=== PATIENT | male | born 1950 | race Caucasian/White ===

== ENCOUNTER 2018-11-14 18:44 | Observation (INO) ==
[2018-11-14] MEDS ORDERED: NITROGLYCERIN SL 0.4 MG/TAB TAB SL STA (19:13)
[2018-11-14] MEDS ORDERED: SODIUM CHLORIDE 0.9% 1000ML 1,000 ML IV SCH (19:15)
--- NOTE | 2018-11-14 19:28 | XRay Report ---
XR chest 1V portable CLINICAL HISTORY: 68 years-old Male presenting with Chest Pain. TECHNIQUE: Portable upright AP view of the chest was obtained. COMPARISON: None. FINDINGS: Median sternotomy wires. Epicardial pacing wire also noted. Cardiac silhouette top normal in size. Mi ld pulmonary vascular prominence. Mildly low lung volumes with hypoventilatory changes. No focal opac ity. No large effusion or pneumothorax. Osseous structures normal. Upper abdomen normal. IMPRESSION: 1. Mildly low lung volumes with hypoventilatory changes. 2. Possible mild volume overload. No hardeep pulmonary edema. Electronically signed by: Porfirio Walker M.D. 11/14/2018 7:26 PM
[2018-11-14 19:44] LABS: Basophils # (auto) 0.02 K/uL (0-0.2); Basophils % (auto) 0.3 %; Eosinophils # (auto) 0.11 K/uL (0-0.5); Eosinophils % (auto) 1.5 %; Hematocrit (blood only) 34.2 % (42-52); Hemoglobin 11.9 g/dL (14.0-18.0); Immature Granulocytes # (auto) 0.01 K/uL (0.00-0.02); Immature Granulocytes % (auto) 0.1 %; Lymphocytes # (auto) 2.87 K/uL (1.2-3.4); Mean Corpuscular Hemoglobin 30.4 pg (25-34); Mean Corpuscular Hgb Conc 34.8 g/dL (32-36); Mean Corpuscular Volume 87.5 fL (80-100); Mean Platelet Volume 9.1 fL (7.4-10.4); Monocytes # (auto) 0.63 K/uL (0.11-0.59); Monocytes % (auto) 8.3 %; Neutrophils # (auto) 3.91 K/uL (1.4-6.5); Neutrophils % (auto) 51.8 %; Platelet Count 231 K/uL (130-400); RDW Standard Deviation 41.3 fL (36.4-46.3); Red Blood Count 3.91 M/uL (4.7-6.1); White Blood Count 7.55 K/uL (4.8-10.8)
[2018-11-14 19:59] LABS: D Dimer 270 ug/L FEU (0-500)
[2018-11-14 20:07] LABS: Alanine Aminotransferase 29 U/L (12-78); Albumin Level 3.4 gm/dl (3.4-5.0); Aspartate Aminotransferase 20 U/L (15-37); BUN Creatinine Ratio 15.9 (10-20); Blood Urea Nitrogen 25 mg/dl (7-18); Calcium 8.7 mg/dl (8.5-10.1); Carbon Dioxide 23 mmol/L (21-32); Chloride 108 mmol/L (98-107); Creatinine Clr Calc Pharmacy 52.9 ml/min; Est GFR (African American) 50.6; Est GFR (Non-African American) 43.7; Glucose 188 mg/dl (70-99); Lipase 135 U/L (73-393); Potassium 4.3 mmol/L (3.5-5.1); Sodium 140 mmol/L (136-145)
[2018-11-14 20:12] LABS: Albumin Globulin Ratio 0.9 (0.9-2); Alkaline Phosphatase 87 U/L (45-117); Bilirubin,Total 0.3 mg/dl (0.2-1); Total Protein 7.4 gm/dl (6.4-8.2); Troponin I < 0.015 ng/ml (0-0.045)
--- NOTE | 2018-11-14 21:31 | History & Physical Report ---
Date of Service November 14, 2018 Assessment & Plan (1) Chest pain: This is a 68-year-old male with history of CAD, CABG in 2015, status post gastric bypass 2 years ago, type 2 diabetes, hypertension, former smoker 90 pack year history quit 4 years ago, MCKENZIE compliant with CPAP, who presents with midsternal chest pressure radiating to the left arm. States it feels like something is fluttering underneath his sternum. Endorses sharp pain in his left upper arm. 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 Associated with dizziness and lightheadedness. He thought the pain would go away on its own and did not alert family until around 5 PM. He was brought in by EMS and given nitroglycerin with good effect. Denies shortness of breath, leg swelling, abdominal pain, diarrhea constipation, headache or blurred vision. ED course:Nitroglycerin x2, EKG with no dynamic changes, chest x-ray negative. Labs remarkable for anemia hemoglobin 11.9, elevated creatinine 1.58, initial troponin negative. Chest pain -EKG with no dynamic changes, However with risk factors positive for history of CABG, obesity, hypertension, hypercholesterolemia, diabetes. -MACE Score is moderate, 5 points, risk 12 to 16.6% Plan: -Admit to telemetry -Trend troponins, initial was negative -Echo in a.m. -A1c, BMP,TSH and CBC in a.m. Elevated creatinine, Mild -1.58 -Unsure of patient's baseline, will trend FEN/GI: HH/diabetic diet, NPO after midnite DVT ppx: heparin q8h CODE STATUS: FULL as d/w pt, however he is adamant he "would not want to be a vegetable". DISPO: tele (2) Coronary artery disease with hx of myocardial infarct w/o hx of CABG: (3) Type 2 diabetes mellitus: Type 2 diabetes -Appears to be well controlled, patient states A1c 1 month ago was 7.2 -On Glimepiride at home, will hold p.o. meds while inpatient -A1c in a.m. -Insulin sliding scale while here (4) Hypertension: -Elevated in ED, likely situational versus cardiac related -Continue home amlodipine, carvedilol, losartan (5) H/O gastric bypass: Avoid NSAIDs when possible (6) H/O hernia repair: (7) GERD (gastroesophageal reflux disease): Continue home PPI (8) MCKENZIE on CPAP: CPAP ordered for here (9) Former smoker: (10) Obesity: (11) Anxiety: Continue home paroxetine History of Present Illness Chief Complaint: Substernal pressure, radiating to left arm, history of CABG in 2014 Primary Care Provider: Dr. Robe [facility], [facility] Address: [address] [place] [address] This is a 68-year-old male with history of CAD, CABG in 2015, status post gastric bypass 2 years ago, type 2 diabetes, hypertension, former smoker 90 pack year history quit 4 years ago, MCKENZIE compliant with CPAP, who presents with midsternal chest pressure radiating to the left arm. States it feels like something is fluttering underneath his sternum. Endorses sharp pain in his left upper arm. 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 Associated with dizziness and lightheadedness. He thought the pain would go away on its own and did not alert family until around 5 PM. He was brought in by EMS and given nitroglycerin with good effect. Denies shortness of breath, leg swelling, abdominal pain, diarrhea constipation, headache or blurred vision. ED course:Nitroglycerin x2, EKG with no dynamic changes, chest x-ray negative. Labs remarkable for anemia hemoglobin 11.9, elevated creatinine 1.58, initial troponin negative. Past medical history: CAD, CABG in 2014, status post gastric bypass 2 years ago, type 2 diabetes, hypertension, former smoker 90 pack year history quit 4 years ago, MCKENZIE compliant with CPAP, Anxiety Surgical history: Positive for gastric bypass 2 years ago, CABG in 2015, hernia repair x2 SH: He is from out of town [facility], here with family. He is retired but drives a bus for living. Lives with his . Former smoker 30 years of 2+ packs a day, No alcohol or drugs. Allergies Allergy/AdvReac Type Severity Reaction Status Date / Time clindamycin Allergy Intermediate Hives Verified 11/14/18 21:22 Home Medications Home Medications Medication Instructions Recorded Confirmed Type amlodipine 5 mg PO QAM 11/14/18 11/14/18 History ascorbic acid (vitamin C) [Vitamin 500 mg PO QAM 11/14/18 11/14/18 History C] aspirin 81 mg PO QAM 11/14/18 11/14/18 History atorvastatin 20 mg PO QAM 11/14/18 11/14/18 History carvedilol 25 mg PO QAM 11/14/18 11/14/18 History cholecalciferol (vitamin D3) 400 unit PO QAM 11/14/18 11/14/18 History [Vitamin D3] cyanocobalamin (vitamin B-12) 100 mcg PO QAM 11/14/18 11/14/18 History [Vitamin B-12] ferrous sulfate 325 mg PO QAM 11/14/18 11/14/18 History furosemide 40 mg PO QAM 11/14/18 11/14/18 History glimepiride 4 mg PO BID 11/14/18 11/14/18 History losartan 100 mg PO QAM 11/14/18 11/14/18 History multivitamin 1 tab PO QAM 11/14/18 11/14/18 History omeprazole 20 mg PO QAM 11/14/18 11/14/18 History paroxetine HCl 20 mg PO QAM 11/14/18 11/14/18 History vitamin E 400 unit PO QAM 11/14/18 11/14/18 History Past Med/Surg History Medical History Anxiety (Chronic) Obesity (Chronic) Former smoker (Chronic) MCKENZIE on CPAP (Chronic) GERD (gastroesophageal reflux disease) (Chronic) Hypertension (Chronic) Type 2 diabetes mellitus (Chronic) Coronary artery disease with hx of myocardial infarct w/o hx of CABG (Chronic) Surgical History H/O hernia repair (Chronic) H/O gastric bypass (Chronic) S/P triple vessel bypass (Acute) Social History Preferred Language: Spanish Communication Ability: Effective Environmental Web Crawler Required: No Beliefs That Will Affect Care: None Current Living Situation: Spouse Other Information That Helps Us Care for You: No Feels Safe at Home: Yes Safety Concerns: Feels Safe At This Time Smoking Status: Former smoker Do You Dip or Chew Tobacco: No ; Second Hand Exposure: No ; Tobacco Cessation Education Requested by Patient: No Hx Alcohol Use: Yes Alcohol type: wine Hx Substance Use: No Review of Systems Review of Systems: All systems reviewed & are unremarkable except as noted in HPI & below Physical Exam Physical Exam: Vitals noted and within normal limits with the exception of Elevated blood pressure 194/78. GENERAL: Awake, alert to person, place, and time, nontoxic-appearing, in no distress. HENT: Normocephalic, atraumatic. EYES: Normal conjunctiva. Sclera non-icteric. EOMI. NECK: Supple. Full range of motion. No JVD. RESPIRATORY: Clear to auscultation. Normal work of breathing. CARDIAC: Regular rate, normal rhythm. Extremities warm and well perfused, 2+ radial pulses bilaterally; 2+ posterior tibialis pulses bilaterally. CHEST: Mild tenderness to palpation along left pectoral muscle. No tenderness to palpation midsternal chest. ABDOMEN: Soft, non-distended. No tenderness to palpation in all four quadrants. No rebound or guarding. No masses. Bowel sounds are normal. LOWER EXTREMITIES: Inspection of calves reveal equal size bilaterally. They are non-tender. No edema. No discoloration. NEURO: No gross focal motor deficits noted. Sensation in tact. CN II-XII grossly in tact. . SKIN: Rash not present. No jaundice noted. Significant lesions not present. PSYCH: Appropriate mood and affect. Cooperative. Exam as done by Sagrario Mock MD, Business Planning Director. Results & Data Vital Signs (Past 12 Hours) Vital Signs Temp Pulse Resp BP Pulse Ox 11/14/18 20:30 59 L 9 L 150/63 H 97 11/14/18 20:15 61 12 156/61 H 97 11/14/18 20:00 62 13 144/79 H 93 11/14/18 19:46 63 14 155/115 H 92 11/14/18 19:30 62 17 151/66 H 94 11/14/18 19:16 63 14 159/64 H 98 11/14/18 19:00 61 11 L 154/69 H 97 11/14/18 18:56 59 L 23 98 11/14/18 18:53 59 L 18 154/75 H 98 11/14/18 18:30 36.8 C 67 16 154/75 H 98 Laboratory Results 11/14/18 11/14/18 11/14/18 Range/Units 19:24 19:24 19:24 WBC 7.55 (4.8-10.8) K/uL RBC 3.91 L (4.7-6.1) M/uL Hgb 11.9 L (14.0-18.0) g/dL Hct 34.2 L (42-52) % MCV 87.5 (80-100) fL MCH 30.4 (25-34) pg MCHC 34.8 (32-36) g/dL RDW Std Deviation 41.3 (36.4-46.3) fL RDW Coeff of Nelda 13.0 (11.5-14.5) % Plt Count 231 (130-400) K/uL MPV 9.1 (7.4-10.4) fL Immature Gran % (Auto) 0.1 % Neut % (Auto) 51.8 % Lymph % (Auto) 38.0 % Leslie % (Auto) 8.3 % Eos % (Auto) 1.5 % Baso % (Auto) 0.3 % Immature Gran # (Auto) 0.01 (0.00-0.02) K/uL Neut # (Auto) 3.91 (1.4-6.5) K/uL Lymph # (Auto) 2.87 (1.2-3.4) K/uL Leslie # (Auto) 0.63 H (0.11-0.59) K/uL Eos # (Auto) 0.11 (0-0.5) K/uL Baso # (Auto) 0.02 (0-0.2) K/uL D-Dimer 270 (0-500) ug/L FEU Sodium 140 (136-145) mmol/L Potassium 4.3 (3.5-5.1) mmol/L Chloride 108 H (98-107) mmol/L Carbon Dioxide 23 (21-32) mmol/L Anion Gap 9.0 (3-11) BUN 25 H (7-18) mg/dl Creatinine 1.58 H (0.6-1.4) mg/dl Est Cr Clr Drug Dosing 52.9 ml/min Est GFR ( Amer) 50.6 Est GFR (Non-Af Amer) 43.7 BUN/Creatinine Ratio 15.9 (10-20) Glucose 188 H (70-99) mg/dl Calcium 8.7 (8.5-10.1) mg/dl Total Bilirubin 0.3 (0.2-1) mg/dl AST 20 (15-37) U/L ALT 29 (12-78) U/L Alkaline Phosphatase 87 (45-117) U/L Troponin I < 0.015 (0-0.045) ng/ml Total Protein 7.4 (6.4-8.2) gm/dl Albumin 3.4 (3.4-5.0) gm/dl Globulin 4.0 (2.5-4.0) gm/dl Albumin/Globulin Ratio 0.9 (0.9-2) Lipase 135 (73-393) U/L Supervising Physician Co-Signing Physician Notes Patient was seen and examined by me personally. I reviewed the chart, the orders and discussed the case in detail with Dr. Sagrario Mock MD . I read this H&P and agree with its contents to entirety. PG Care Time/CCT Total # of Minutes Spent Total Time Spent with Patient: Total time spent is greater than 50% in coordination of care (as documented) at patient's floor/unit and/or counseling patient: Resident Activity Tracking Resident Involvement: Resident Care Provided Care Provided: Adult Hospital Medicine
[2018-11-14] MEDS ORDERED: MAGNESIUM HYDROXIDE SUSP 30 ML UDC PO PRN (22:14)
[2018-11-14] MEDS ORDERED: DEXTROSE 50% 50 ML SYRINGE IV PRN (22:14)
[2018-11-14] MEDS ORDERED: POLYETHYLENE (MIRALAX) 17 GM PACK PO PRN (22:14)
[2018-11-14] MEDS ORDERED: ALUMINUM/MAGNESIUM SUSP 30 ML UDC PO PRN (22:14)
[2018-11-14] MEDS ORDERED: ONDANSETRON INJ 2 MG/ML 2 ML VIAL IV PRN (22:14)
[2018-11-14] MEDS ORDERED: GLUCOSE 10 TABS/TUBE PO PRN (22:14)
[2018-11-14] MEDS ORDERED: CARBOHYDRATES FOR HYPOGLYCEMIA PO PRN (22:14)
[2018-11-14] MEDS ORDERED: GLUCOSE 40% GEL 15 GM TUBE PO PRN (22:14)
[2018-11-14] MEDS ORDERED: GLUCAGON FOR INJ 1 MG VIAL SQ PRN (22:14)
[2018-11-14] MEDS ORDERED: ACETAMINOPHEN 325 MG TAB PO PRN (22:14)
[2018-11-14] MEDS ORDERED: NITROGLYCERIN SL 0.4 MG/TAB TAB SL PRN (22:14)
--- NOTE | 2018-11-14 23:45 | Emergency Department Note ---
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 He notes that it radiates to his left shoulder. He notes that the pain is intermittent and has worsened throughout the day. The patient states that he has mild left sided neck pain. He notes that he has shortness of breath. He states that his pain worsens with deep breaths. He mentions that he has a history of diabetes and hypertension. He denies any cough or runny nose. He denies any history of blood clots. Patient admits to a history of a CABG 4 years ago. Home Medications Home Medications Medication Instructions Recorded Confirmed Type amlodipine 5 mg PO QAM 11/14/18 11/14/18 History ascorbic acid (vitamin C) [Vitamin 500 mg PO QAM 11/14/18 11/14/18 History C] aspirin 81 mg PO QAM 11/14/18 11/14/18 History atorvastatin 20 mg PO QAM 11/14/18 11/14/18 History carvedilol 25 mg PO QAM 11/14/18 11/14/18 History cholecalciferol (vitamin D3) 400 unit PO QAM 11/14/18 11/14/18 History [Vitamin D3] cyanocobalamin (vitamin B-12) 100 mcg PO QAM 11/14/18 11/14/18 History [Vitamin B-12] ferrous sulfate 325 mg PO QAM 11/14/18 11/14/18 History furosemide 40 mg PO QAM 11/14/18 11/14/18 History glimepiride 4 mg PO BID 11/14/18 11/14/18 History losartan 100 mg PO QAM 11/14/18 11/14/18 History multivitamin 1 tab PO QAM 11/14/18 11/14/18 History omeprazole 20 mg PO QAM 11/14/18 11/14/18 History paroxetine HCl 20 mg PO QAM 11/14/18 11/14/18 History vitamin E 400 unit PO QAM 11/14/18 11/14/18 History Allergies Allergy/AdvReac Type Severity Reaction Status Date / Time clindamycin Allergy Intermediate Hives Verified 11/14/18 21:22 Past Med/Surg History Medical History Anxiety (Chronic) Obesity (Chronic) Former smoker (Chronic) MCKENZIE on CPAP (Chronic) GERD (gastroesophageal reflux disease) (Chronic) Hypertension (Chronic) Type 2 diabetes mellitus (Chronic) Coronary artery disease with hx of myocardial infarct w/o hx of CABG (Chronic) Surgical History H/O hernia repair (Chronic) H/O gastric bypass (Chronic) S/P triple vessel bypass (Acute) Social History Preferred Language: Belizean Communication Ability: Effective Blood Bank Laboratory Technician Required: No Beliefs That Will Affect Care: None Current Living Situation: Spouse Other Information That Helps Us Care for You: No Feels Safe at Home: Yes Safety Concerns: Feels Safe At This Time Smoking Status: Former smoker Do You Dip or Chew Tobacco: No ; Second Hand Exposure: No ; Tobacco Cessation Education Requested by Patient: No Hx Alcohol Use: Yes Alcohol type: wine Hx Substance Use: No Review of Systems See HPI for pertinent positives & negatives. and A total of 10 systems reviewed and were otherwise negative Physical Exam Vital Signs Vital Signs - 24 hr 11/14/18 18:30 11/14/18 18:53 11/14/18 18:56 Temperature 36.8 C Temperature Source Oral Sepsis Recent Fever Within 48 Hours No Sepsis New/Unexplained Change in Mental Status No Sepsis Action Taken by Nursing No Action Required Pulse Rate 67 59 L 59 L Pulse Rate from SpO2 Sensor 59 L 59 L Pulse Rhythm Regular Pulse Strength Normal Respiratory Rate 16 18 23 Respiratory Effort / Characteristics Non-Labored Spontaneous Respiratory Depth Normal Respiratory Pattern Regular Blood Pressure 154/75 H 154/75 H Blood Pressure Mean 101 101 Blood Pressure Position Lying Pulse Oximetry 98 98 98 Oxygen Delivery Method Room Air 11/14/18 18:59 11/14/18 19:00 11/14/18 19:12 Temperature Temperature Source Sepsis Recent Fever Within 48 Hours Sepsis New/Unexplained Change in Mental Status Sepsis Action Taken by Nursing Pulse Rate 61 Pulse Rate from SpO2 Sensor 62 Pulse Rhythm Pulse Strength Respiratory Rate 11 L Respiratory Effort / Characteristics Respiratory Depth Respiratory Pattern Blood Pressure 154/69 H Blood Pressure Mean 97 Blood Pressure Position Pulse Oximetry 97 Oxygen Delivery Method Room Air Room Air 11/14/18 19:16 11/14/18 19:30 11/14/18 19:46 Temperature Temperature Source Sepsis Recent Fever Within 48 Hours Sepsis New/Unexplained Change in Mental Status Sepsis Action Taken by Nursing Pulse Rate 63 62 63 Pulse Rate from SpO2 Sensor 61 62 63 Pulse Rhythm Pulse Strength Respiratory Rate 14 17 14 Respiratory Effort / Characteristics Respiratory Depth Respiratory Pattern Blood Pressure 159/64 H 151/66 H 155/115 H Blood Pressure Mean 95 94 128 Blood Pressure Position Pulse Oximetry 98 94 92 Oxygen Delivery Method 11/14/18 20:00 11/14/18 20:15 11/14/18 20:30 Temperature Temperature Source Sepsis Recent Fever Within 48 Hours Sepsis New/Unexplained Change in Mental Status Sepsis Action Taken by Nursing Pulse Rate 62 61 59 L Pulse Rate from SpO2 Sensor 61 62 59 L Pulse Rhythm Pulse Strength Respiratory Rate 13 12 9 L Respiratory Effort / Characteristics Respiratory Depth Respiratory Pattern Blood Pressure 144/79 H 156/61 H 150/63 H Blood Pressure Mean 100 92 92 Blood Pressure Position Pulse Oximetry 93 97 97 Oxygen Delivery Method 11/14/18 20:45 11/14/18 21:00 11/14/18 21:15 Temperature Temperature Source Sepsis Recent Fever Within 48 Hours Sepsis New/Unexplained Change in Mental Status Sepsis Action Taken by Nursing Pulse Rate 62 60 63 Pulse Rate from SpO2 Sensor 61 60 65 Pulse Rhythm Pulse Strength Respiratory Rate 11 L 12 17 Respiratory Effort / Characteristics Respiratory Depth Respiratory Pattern Blood Pressure 169/114 H 176/87 H 182/78 H Blood Pressure Mean 132 116 112 Blood Pressure Position Pulse Oximetry 98 98 98 Oxygen Delivery Method 11/14/18 21:19 11/14/18 21:20 Temperature Temperature Source Sepsis Recent Fever Within 48 Hours Sepsis New/Unexplained Change in Mental Status Sepsis Action Taken by Nursing Pulse Rate Pulse Rate from SpO2 Sensor Pulse Rhythm Pulse Strength Respiratory Rate Respiratory Effort / Characteristics Respiratory Depth Respiratory Pattern Blood Pressure 178/78 H 194/78 H Blood Pressure Mean 111 116 Blood Pressure Position Pulse Oximetry Oxygen Delivery Method GENERAL: chronically ill appearing, holding chest, mild distress EYE EXAM: normal conjunctiva OROPHARYNX: no exudate, no erythema, lips, buccal mucosa, and tongue normal and mucous membranes are moist NECK: supple, no nuchal rigidity, no adenopathy, non-tender LUNGS: Clear to auscultation. Normal chest wall mechanics HEART: no murmurs, S1 normal and S2 normal ABDOMEN: abdomen soft, non-tender, normo-active bowel sounds, no masses, no rebound or guarding. BACK: Back is symmetrical on inspection and there is no deformity, no midline tenderness, no CVA tenderness. SKIN: no rashes and no bruising UPPER EXTREMITIES: upper extremities are grossly normal. LOWER EXTREMITIES: No pitting edema. Calves equal bilateral NEURO EXAM: Normal sensorium, cranial nerves II-XII grossly intact, normal speech, no gross weakness of arms, no gross weakness of legs. Course ED COURSE: Vital signs were reviewed and showed hypetension. The patients medical record was reviewed The above diagnostic studies were performed and reviewed. ED treatments and interventions as stated above. 1912: The patient was evaluated in room B2. A complete history and physical examination was performed. 2009: I discussed the patient's case with Dr. [facility] Hospitalist, he will accept the patient for further evaluation. 2025: Upon reevaluation, the patient is feeling better. I discussed my findings with the patient and he understands and agrees with the treatment plan. Based on the patients age, coexisting illnesses, exam and lab findings the decision to treat as an inpatient was made. The patient remained stable while under my care. The patient will be evaluated for further management. Administered Medications Discontinued Medications Sodium Chloride (Nss 1000ml) 1,000 mls @ 999 mls/hr IV .Q1H1M OLEKSANDR Stop: 11/14/18 20:15 Last Infusion: 11/14/18 21:14 Dose: 0 mls/hr Documented by: [id number] Admin: 11/14/18 19:50 Dose: 999 mls/hr Documented by: [id number] Nitroglycerin (Nitrostat) 0.4 mg SL NOW STA Stop: 11/14/18 19:14 Last Admin: 11/14/18 19:20 Dose: 0.4 mg Documented by: [id number] Medical Decision Making Differential Diagnosis Differential diagnoses includes but is not limited to acute coronary syndrome, myocardial infarction, pericarditis, pulmonary embolus, aortic dissection, pneumonia, pneumothorax, musculoskeletal, shingles, esophageal. Medical Records Attestation: I reviewed the patient's medical records. Home Medications Current Medication List: was personally reviewed by me Laboratory Data Attestation: I reviewed the patient's lab results. Result diagrams: 11/14/18 19:24 11/14/18 19:24 Lab Results 11/14/18 11/14/18 11/14/18 Range/Units 19:24 19:24 19:24 WBC 7.55 (4.8-10.8) K/uL RBC 3.91 L (4.7-6.1) M/uL Hgb 11.9 L (14.0-18.0) g/dL Hct 34.2 L (42-52) % MCV 87.5 (80-100) fL MCH 30.4 (25-34) pg MCHC 34.8 (32-36) g/dL RDW Std Deviation 41.3 (36.4-46.3) fL RDW Coeff of Nelda 13.0 (11.5-14.5) % Plt Count 231 (130-400) K/uL MPV 9.1 (7.4-10.4) fL Immature Gran % (Auto) 0.1 % Neut % (Auto) 51.8 % Lymph % (Auto) 38.0 % Haines % (Auto) 8.3 % Eos % (Auto) 1.5 % Baso % (Auto) 0.3 % Immature Gran # (Auto) 0.01 (0.00-0.02) K/uL Neut # (Auto) 3.91 (1.4-6.5) K/uL Lymph # (Auto) 2.87 (1.2-3.4) K/uL Haines # (Auto) 0.63 H (0.11-0.59) K/uL Eos # (Auto) 0.11 (0-0.5) K/uL Baso # (Auto) 0.02 (0-0.2) K/uL D-Dimer 270 (0-500) ug/L FEU Sodium 140 (136-145) mmol/L Potassium 4.3 (3.5-5.1) mmol/L Chloride 108 H (98-107) mmol/L Carbon Dioxide 23 (21-32) mmol/L Anion Gap 9.0 (3-11) BUN 25 H (7-18) mg/dl Creatinine 1.58 H (0.6-1.4) mg/dl Est Cr Clr Drug Dosing 52.9 ml/min Est GFR ( Amer) 50.6 Est GFR (Non-Af Amer) 43.7 BUN/Creatinine Ratio 15.9 (10-20) Glucose 188 H (70-99) mg/dl Calcium 8.7 (8.5-10.1) mg/dl Total Bilirubin 0.3 (0.2-1) mg/dl AST 20 (15-37) U/L ALT 29 (12-78) U/L Alkaline Phosphatase 87 (45-117) U/L Troponin I < 0.015 (0-0.045) ng/ml Total Protein 7.4 (6.4-8.2) gm/dl Albumin 3.4 (3.4-5.0) gm/dl Globulin 4.0 (2.5-4.0) gm/dl Albumin/Globulin Ratio 0.9 (0.9-2) Lipase 135 (73-393) U/L Imaging Data Radiologist's Impression: Radiology results as stated below per my review and the radiologist's interpretation: XR chest 1V portable CLINICAL HISTORY: 68 years-old Male presenting with Chest Pain. TECHNIQUE: Portable upright AP view of the chest was obtained. COMPARISON: None. FINDINGS: Median sternotomy wires. Epicardial pacing wire also noted. Cardiac silhouette top normal in size. Mild pulmonary vascular prominence. Mildly low lung volumes with hypoventilatory changes. No focal opacity. No large effusion or pneumothorax. Osseous structures normal. Upper abdomen normal. IMPRESSION: 1. Mildly low lung volumes with hypoventilatory changes. 2. Possible mild volume overload. No hardeep pulmonary edema. Electronically signed by: Porfirio Walker M.D. 11/14/2018 7:26 PM ECG Data Attestation: I personally reviewed and interpreted this ECG as follows: Indication: chest pain Rate (beats per minute): 59 Rhythm: sinus rhythm Findings: + other (normal interval and normal axis ) and + T-wave inversion; no PVC Blood Pressure Blood Pressure Findings: Elevated blood pressure Blood Pressure Disposition: further management by hospitalist ESTEBAN Narrative Patient is a 68-year-old male with a past medical history of CABG, hypertension and gastric bypass along with diabetes and sleep apnea that presents the ER for midsternal chest pressure associated with shortness of breath. Patient was brought in by EMS and given 2 dose of nitro and aspirin. IV was established blood work was obtained showed mild anemia at 11.9. No significant leukocytosis. D-dimer was negative. BMP with a creatinine 1.58. Glucose elevated 188. Troponin was negative. Lipase unremarkable. EKG was nondiagnostic. Symptoms resolved with nitro. He was updated bedside. Discussed with the hospitalist for observation due to chest pain him being high risk. There was a component of reproducible symptoms as well. Impression & Plan Precordial chest pain, Shortness of breath, Obesity, Hypertension, Coronary artery disease with hx of myocardial infarct w/o hx of CABG Discharge Plan Visit Data *Final* Discharge Date/Time: 11/14/18 21:45 Chief Complaint: Cardiac Assessment Stated Complaint: chest pain/sob ED Provider: Selvin Amaya Discharge Problem: Precordial chest pain, Shortness of breath, Obesity, Hypertension, Coronary artery disease with hx of myocardial infarct w/o hx of CABG Patient Disposition: Admitted As Inpatient Discharge Instructions Interventions: ED Discharge Assessment Last Done: 11/14/18 21:45 The scribe's documentation has been prepared under my direction and personally reviewed by me in its entirety. I confirm that the note above accurately reflects all work, treatment, procedures, and medical decision making performed by me.
[2018-11-15] MEDS: HEPARIN SOD 5,000 UNIT/0.5 ML VIAL SQ SCH ×2 (00:01→05:19)
[2018-11-15 05:47] LABS: Basophils # (auto) 0.02 K/uL (0-0.2); Basophils % (auto) 0.3 %; Eosinophils # (auto) 0.14 K/uL (0-0.5); Eosinophils % (auto) 1.8 %; Hematocrit (blood only) 32.6 % (42-52); Hemoglobin 11.5 g/dL (14.0-18.0); Immature Granulocytes # (auto) 0.01 K/uL (0.00-0.02); Immature Granulocytes % (auto) 0.1 %; Lymphocytes # (auto) 3.68 K/uL (1.2-3.4); Lymphocytes % (auto) 48.5 %; Mean Corpuscular Hemoglobin 30.8 pg (25-34); Mean Corpuscular Hgb Conc 35.3 g/dL (32-36); Mean Corpuscular Volume 87.4 fL (80-100); Mean Platelet Volume 8.8 fL (7.4-10.4); Monocytes # (auto) 0.59 K/uL (0.11-0.59); Monocytes % (auto) 7.8 %; Neutrophils # (auto) 3.15 K/uL (1.4-6.5); Neutrophils % (auto) 41.5 %; Platelet Count 215 K/uL (130-400); RDW Coefficient of Variation 12.9 % (11.5-14.5); RDW Standard Deviation 41.4 fL (36.4-46.3); Red Blood Count 3.73 M/uL (4.7-6.1); White Blood Count 7.59 K/uL (4.8-10.8)
[2018-11-15 06:27] LABS: BUN Creatinine Ratio 14.5 (10-20); Calcium 8.2 mg/dl (8.5-10.1); Creatinine Clr Calc Pharmacy 64.3 ml/min; Est GFR (African American) 64.1; Est GFR (Non-African American) 55.3; Potassium 3.7 mmol/L (3.5-5.1)
[2018-11-15 06:37] LABS: Estimated Average Glucose 192 mg/dl; Hemoglobin A1C 8.3 % (4.5-5.6)
[2018-11-15 06:38] LABS: Thyroid Stimulating Hormone 1.05 uIu/ml (0.300-4.500)
[2018-11-15] MEDS: INSULIN ASPART 100 UNITS/ML 3 ML PEN SC SCH ×2 (08:04→12:11)
[2018-11-15] MEDS ORDERED: PARoxetine HCl 20 MG TAB PO SCH (09:00)
[2018-11-15] MEDS ORDERED: AMLODIPINE BESYLATE 5 MG TAB PO SCH (09:00)
[2018-11-15] MEDS ORDERED: carvediloL 25 MG TAB PO SCH (09:00)
[2018-11-15] MEDS ORDERED: LOSARTAN POTASSIUM 50 MG TAB PO SCH (09:00)
[2018-11-15] MEDS ORDERED: ATORVASTATIN 20 MG TAB PO SCH (09:00)
[2018-11-15] MEDS ORDERED: PANTOprazole 40 MG TAB PO SCH (09:00)
[2018-11-15] MEDS ORDERED: ASPIRIN 81 MG ECTAB PO SCH (09:00)
[2018-11-15] MEDS ORDERED: FERROUS SULFATE 325 MG TAB PO SCH (09:00)
[2018-11-15] MEDS: POTASSIUM CHLORIDE 20 MEQ TABCR PO SCH ×2 (10:30→12:11)
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
== END 2018-11-15 14:52 | disposition home or self-care (01) ==
LOC: 2S 18:44 → ED 18:44 → SUATTDRO 21:31 → 2S 21:45